=== PATIENT | male | born 1950 | race Hispanic/Latino ===

== ENCOUNTER 2020-03-25 12:23 | Emergency (ER) | payer OTHER ==
[2020-03-25] MEDS ORDERED: ACETAMINOPHEN 500 MG TAB ONE (13:53)
--- NOTE | 2020-03-25 14:17 | ER ---
Nurse's Notes [facility] Name: Mikie Hurst Age: 69 yrs Sex: Male : 1950 Arrival Date: 03/25/2020 Time: 12:25 Bed 26 Private MD: Diagnosis: Acute upper respiratory infection, unspecified Presentation: 03/25 12:45 Chief complaint: Patient states: Nasal congestion since 03/07. Started to have cough ll1 03/19. Family has similar symptoms. Coronavirus screen: Client denies travel out of the [place] in the last 14 days. congestion, cough unrelated to allergies, fatigue, Client presents with at least one sign or symptom that may indicate coronavirus-19. Standard/surgical mask placed on the client. Ebola Screen: Patient denies travel to an Ebola-affected area in the 21 days before illness onset. Initial Sepsis Screen: Does the patient meet any 2 criteria? HR > 90 bpm. No. Patient's initial sepsis screen is negative. Does the patient have a suspected source of infection? Yes: Productive cough/pneumonia. Risk Assessment: Do you want to hurt yourself or someone else? Patient reports no desire to harm self or others. Onset of symptoms was March 07, 2020. 12:45 Method Of Arrival: Ambulatory ll1 12:45 Acuity: SHAYAN 3 ll1 Historical: - Allergies: 12:45 No Known Allergies; ll1 - PMHx: 12:45 Hypertension; Diabetes - NIDDM; ll1 - PSHx: 12:45 L hand sx; Joint replacement; Appendectomy; ll1 - Immunization history:: Flu vaccine is up to date. - Social history:: Smoking status: Patient denies any tobacco usage or history of. Screenin:40 Abuse screen: Denies threats or abuse. Nutritional screening: No deficits noted. vg1 Tuberculosis screening: No symptoms or risk factors identified. Fall Risk None identified. Assessment: 13:38 General: Appears in no apparent distress. comfortable, Behavior is calm, cooperative. vg1 Pain: Denies pain. Neuro: Level of Consciousness is awake, alert, obeys commands, Oriented to person, place, time. Cardiovascular: Patient's skin is warm and dry. Respiratory: Airway is patent Respiratory effort is even, unlabored, Respiratory pattern is regular, symmetrical. Respiratory: Reports cough that is productive, Breath sounds are clear bilaterally. Denies shortness of breath. GI: Reports diarrhea. : No signs and/or symptoms were reported regarding the genitourinary system. EENT: No signs and/or symptoms were reported regarding the EENT system. Derm: Skin is pink, warm \T\ dry. Musculoskeletal: Range of motion: intact in all extremities. Vital Signs: 12:45 BP 137 / 93; Pulse 97; Resp 18; Temp 100.1; Pulse Ox 96% ; Weight 98.43 kg; Height 5 ll1 ft. 4 in. (162.56 cm); Pain 0/10; 13:25 BP 135 / 100 RA (auto/lg); Pulse 91; Pulse Ox 95% on R/A; jp3 14:00 BP 134 / 74; Pulse 85; Resp 16; Temp 98.6(O); Pulse Ox 97% on R/A; vg1 14:49 BP 136 / 81; Pulse 80; Resp 18; Pulse Ox 98% on R/A; vg1 12:45 Body Mass Index 37.25 (98.43 kg, 162.56 cm) ll1 ED Course: 12:25 Patient arrived in ED. rg4 12:44 Arm band placed on Patient placed in an exam room, on a stretcher. ll1 12:46 Irving Rivera NP is PHCP. pm1 12:46 Feroz Villagomez MD is Attending Physician. pm1 12:47 Triage completed. ll1 12:48 Chelsea Villa, RN is Primary Nurse. vg1 13:10 Bed in low position. Call light in reach. Side rails up X 1. Verbal reassurance given. jp3 Pulse ox on. NIBP on. 13:10 COVID swab sent to lab. Flu and/or RSV swab sent to lab. Strep swab sent to lab. jp3 13:10 Patient maintains SpO2 saturation greater than 95% on room air. jp3 14:33 No provider procedures requiring assistance completed. Patient did not have IV access vg1 during this emergency room visit. Administered Medications: 13:43 Drug: Tylenol 1000 mg Route: PO; vg1 14:15 Follow up: Response: Other vg1 Outcome: 14:17 Discharge ordered by . pm1 14:49 Discharged to home ambulatory. vg1 14:49 Condition: stable 14:49 Discharge instructions given to patient, Instructed on discharge instructions, follow up and referral plans. Demonstrated understanding of instructions, follow-up care. 14:50 Patient left the ED. vg1 Addendum: 03/27/2020 09:34 Addendum: COVID-19 Result: Positive result giiven to ED physician to notify pt. ajit m5 Physician: David Infante MD Physician attempted to contact pt. Physician left voice mail for pt to call the ED back. Signatures: Zahida Pichardo, RN RN dm5 Irving Rivera NP UPHOLSTERY INSTRUCTOR pm1 Lara Villa rg4 Mir High jp3 Chelsea Villa, RN RN vg1 Dinorah Kitchen, RN RN ll1 Corrections: (The following items were deleted from the chart) 03/25 14:15 14:00 BP 134 / 74; Pulse 85bpm; Resp 16bpm; Pulse Ox 97% RA; vg1 vg1 14:35 14:33 Discharged to home ambulatory, vg1 vg1 14:35 14:33 Condition: good vg1 vg1
--- NOTE | 2020-03-25 14:17 | EDPHYS ---
Physician Documentation [facility] Name: Mikie Hurst Age: 69 yrs Sex: Male : 1950 Arrival Date: 03/25/2020 Time: 12:25 Bed 26 Private MD: ED Physician Feroz Villagomez HPI: 03/25 12:58 This 69 yrs old Male presents to ER via Ambulatory with complaints of Cough, pm1 Drainage. 12:58 The patient or guardian reports cough, nasal congestion with post nasal drip. Onset: pm1 The symptoms/episode began/occurred 1 week(s) ago. Severity of symptoms: in the emergency department the symptoms have improved, nasal congestion, post nasal drainage and cough resolve with his antihistamines for allergies. Modifying factors: the symptoms are aggravated by nothing. Associated signs and symptoms: Pertinent negatives: chest pain, diarrhea, ear ache, fever, sore throat, vomiting, shortness of breath. The patient has not experienced similar symptoms in the past. The patient has not recently seen a physician. Patient is here with his and family who clinically have covid19 symptoms. Historical: - Allergies: 12:45 No Known Allergies; ll1 - PMHx: 12:45 Hypertension; Diabetes - NIDDM; ll1 - PSHx: 12:45 L hand sx; Joint replacement; Appendectomy; ll1 - Immunization history:: Flu vaccine is up to date. - Social history:: Smoking status: Patient denies any tobacco usage or history of. ROS: 12:58 Constitutional: Negative for fever, chills, and weight loss, Eyes: Negative for injury, pm1 pain, redness, and discharge. 12:58 Neck: Negative for injury, pain, and swelling, Cardiovascular: Negative for chest pain, palpitations, and edema. 12:58 Abdomen/GI: Negative for abdominal pain, nausea, vomiting, diarrhea, and constipation, Back: Negative for injury and pain, MS/Extremity: Negative for injury and deformity, Skin: Negative for injury, rash, and discoloration, Neuro: Negative for headache, weakness, numbness, tingling, and seizure. 12:58 ENT: Positive for nasal discharge, Negative for ear pain, sore throat. 12:58 Respiratory: Positive for cough, Negative for shortness of breath, sputum production, wheezing. Exam: 12:58 Constitutional: This is a well developed, well nourished patient who is awake, alert, pm1 and in no acute distress. Head/Face: Normocephalic, atraumatic. 12:58 Back: No spinal tenderness. No costovertebral tenderness. Full range of motion. Skin: Warm, dry with normal turgor. Normal color with no rashes, no lesions, and no evidence of cellulitis. MS/ Extremity: Pulses equal, no cyanosis. Neurovascular intact. Full, normal range of motion. 12:58 Cardiovascular: Exam negative for acute changes, Rate: normal, Rhythm: regular, Pulses: no pulse deficits are appreciated. 12:58 Respiratory: Exam negative for acute changes, respiratory distress, shortness of breath. 12:58 Abdomen/GI: Exam negative for acute changes, Inspection: abdomen appears normal, Palpation: abdomen is soft and non-tender, in all quadrants. Vital Signs: 12:45 BP 137 / 93; Pulse 97; Resp 18; Temp 100.1; Pulse Ox 96% ; Weight 98.43 kg; Height 5 ll1 ft. 4 in. (162.56 cm); Pain 0/10; 13:25 BP 135 / 100 RA (auto/lg); Pulse 91; Pulse Ox 95% on R/A; jp3 14:00 BP 134 / 74; Pulse 85; Resp 16; Temp 98.6(O); Pulse Ox 97% on R/A; vg1 14:49 BP 136 / 81; Pulse 80; Resp 18; Pulse Ox 98% on R/A; vg1 12:45 Body Mass Index 37.25 (98.43 kg, 162.56 cm) ll1 MDM: 12:52 Patient medically screened. pm1 14:16 Data reviewed: vital signs. Data interpreted: Pulse oximetry: on room air is 97 %. pm1 Interpretation: normal. Counseling: I had a detailed discussion with the patient and/or guardian regarding: the historical points, exam findings, and any diagnostic results supporting the discharge/admit diagnosis, lab results, the need for outpatient follow up, to return to the emergency department if symptoms worsen or persist or if there are any questions or concerns that arise at home. 03/25 12:57 Order name: COVID-19 pm1 03/25 12:57 Order name: Flu; Complete Time: 14:16 pm1 03/25 12:57 Order name: Strep; Complete Time: 14:12 pm1 03/25 12:57 Order name: Droplet/Contact Precautions; Complete Time: 13:02 pm1 03/25 14:12 Order name: Throat Culture [facility] 03/25 12:57 Order name: Labs collected and sent; Complete Time: 13:26 pm1 Administered Medications: 13:43 Drug: Tylenol 1000 mg Route: PO; vg1 14:15 Follow up: Response: Other vg1 Disposition: 15:02 Co-signature as Attending Physician, Feroz Villagomez MD. rn Disposition: 03/25/20 14:17 Discharged to Home. Impression: Acute upper respiratory infection, unspecified. - Condition is Stable. - Discharge Instructions: Upper Respiratory Infection, Adult, COVID-19. - Medication Reconciliation Form, Thank You Letter, Antibiotic Education, Prescription Opioid Use form. - Follow up: Emergency Department; When: As needed; Reason: Worsening of condition. Follow up: Private Physician; When: 2 - 3 days; Reason: Recheck today's complaints, Continuance of care, Re-evaluation by your physician. - Problem is new. - Symptoms have improved. Signatures: Dispatcher [employer] Feroz Villagomez MD MD rn Irving Rivera, MOTOR TESTER MOTOR TESTER pm1 Chelsea Villa RN RN vg1 Dinorah Kitchen RN RN ll1 Corrections: (The following items were deleted from the chart) 14:50 14:17 03/25/2020 14:17 Discharged to Home. Impression: Acute upper respiratory vg1 infection, unspecified. Condition is Stable. Forms are Medication Reconciliation Form, Thank You Letter, Antibiotic Education, Prescription Opioid Use. Follow up: Emergency Department; When: As needed; Reason: Worsening of condition. Follow up: Private Physician; When: 2 - 3 days; Reason: Recheck today's complaints, Continuance of care, Re-evaluation by your physician. Problem is new. Symptoms have improved. pm1
[2020-03-25 14:56] VITALS: TEMP 98.6
[2020-03-25 14:57] VITALS: BP 136/81; O2SAT 98
== END 2020-03-25 14:50 | disposition home or self-care (01) ==
LOC: ER 12:23
DX: U07.1 COVID-19 (principal); J06.9 Acute upper respiratory infection, unspecified; I10 Essential (primary) hypertension
CPT/HCPCS: 87070; 87081; 87804 ×2; 99284; U0002

== ENCOUNTER 2021-08-13 06:19 | Day surgery (SDC) | payer OTHER ==
--- NOTE | 2021-08-11 14:43 | RAD REPORT ---
EXAM DESCRIPTION: RAD - Chest Pa And Lat (2 Views) - 08/11/2021 2:37 pm CLINICAL HISTORY: Pre op pending hernia surgery Chest pain. COMPARISON: No comparisons FINDINGS: The lungs are clear. The heart is normal in size. No displaced fractures. IMPRESSION: No acute or concerning finding suspected.
[2021-08-11 14:59] LABS: Potassium 4.2 mmol/L (3.5-5.1)
[2021-08-11 15:59] LABS: Absolute Lymphocytes (CBC) 1.2 K/uL (0.7-4.9); Hematocrit 38.8 % (39.6-49.0); MPV 8.5 fL (7.6-11.3); RBC Red Blood Cell Count 4.03 M/uL (4.33-5.43)
--- NOTE | 2021-08-12 09:35 | EKG ---
Test Date: 2021-08-11 Test Time: 13:23:23 Marketing Account Manager: EMERALD MEASUREMENT RESULTS: Intervals: Rate: 90 VA: 154 QRSD: 182 QT: 424 QTc: 518 Rice: P: 38 VA: 154 QRS: -89 T: 32 INTERPRETIVE STATEMENTS: Normal sinus rhythm Left axis deviation Right bundle branch block Possible Lateral infarct, age undetermined Abnormal ECG Compared to ECG 10/19/2001 05:55:00 Left-axis deviation now present Right bundle-branch block now present Myocardial infarct finding now present Sinus tachycardia no longer present Left anterior fascicular block no longer present Electronically Signed On 08-12-21 09:32:28 CDT by Gunnar Sharp
[2021-08-13] MEDS ORDERED: NA CHLORIDE 0.9% 1,000 ML ONE (06:37)
[2021-08-13] MEDS ORDERED: FENTANYL CITR 100 MCG/2 ML ONE (07:05)
[2021-08-13] MEDS ORDERED: NA CHLORIDE 0.9% 0 ML ONE (07:05)
[2021-08-13] MEDS ORDERED: LIDOCAINE 2% MPF 5 ML VIAL ONE (07:06)
[2021-08-13] MEDS ORDERED: MIDAZOLAM HCL 2 MG/2 ML INJ ONE (07:06)
[2021-08-13] MEDS ORDERED: propofoL 200 MG/20 ML VIAL IV ONE (07:06)
[2021-08-13] MEDS ORDERED: ONDANSETRON 4 MG/2 ML VIAL ONE ×2 (07:07→09:16)
[2021-08-13] MEDS ORDERED: dexAMETHasone 10 MG/ML VIAL ONE (07:08)
[2021-08-13] MEDS ORDERED: ROCURONIUM 50 MG/5 ML VIAL IV ONE (07:08)
[2021-08-13] MEDS ORDERED: GLYCOPYRROLATE 0.2 MG/ML SYR ONE (07:08)
[2021-08-13] MEDS ORDERED: NEOSTIGMINE 1 MG/ML -10 ML VIAL ONE (07:09)
[2021-08-13] MEDS: CEFAZOLIN SODIUM 1 GM/VIAL ONE ×3 (07:09→07:40)
--- NOTE | 2021-08-13 08:32 | P.BOP ---
Preoperative diagnosis: incarcerated tender incisional ventral hernia Postoperative diagnosis: same plus intrabdominal adhesions Primary procedure: Laparoscopic Repair incarcer. tender incisional ventral hernias with mesh Station Installer: JOSELITO SCHWARZ (HAND RIVETER) Estimated blood loss: <20cc Specimen: sac Findings: multiple incisional hernias from previous incision, extensive adhesions Anesthesia: General Complications: None Drain(s): Other (large ventralex mesh) Transferred to: Recovery Room Condition: Good
[2021-08-13] MEDS: NA CHLORIDE 0.9% 1,000 ML ONE ×3 (08:34→08:45)
[2021-08-13] MEDS: HYDROMORPHONE HCL 1 MG/ML INJ ONE ×4 (09:12→09:42)
[2021-08-13] MEDS ORDERED: HYDROCODONE/APAP 5/325 MG TAB ONE (10:06)
[2021-08-13 10:11] VITALS: TEMP 97.4
[2021-08-13 10:47] VITALS: BP 116/58; O2SAT 96
--- NOTE | 2021-08-14 00:47 | OP ---
Date of Procedure: 08/13/2021 Surgeon: Mich Colon MD Jewelry Racker: Evelina Galarza. Preoperative Diagnosis: Incarcerated tender incisional ventral hernia. Postoperative Diagnoses: Incarcerated tender incisional ventral hernia and extensive intraabdominal adhesions. Procedure: Laparoscopic repair of incarcerated tender incisional ventral hernia with mesh. Estimated Blood Loss: Less than 20 cc. Specimen: Hernia sac. Findings: The patient has an incision in mid abdomen. There is a hernia coming from that area. Whe n we put the cameras inside, we noticed there was not only 1, there were about 4 them together. We w ill make this in 1 defect. We were able to cover that with the stitches and with the mesh all togeth er in 1 mesh. Complications: None. We have also extensive intraabdominal adhesions. The patient had surgical intervention. In the past in order for us to be able to do that, we had to mobilize the falciform ligament and also remove all the adhesions, took about half the time just doing this, with the help of LigaSure. History Of Present Illness: This is the case of a 71-year-old patient, who came to us with incisiona l pain, diagnosed with an incarcerated incisional ventral hernia. The benefits, alternatives, and ri sks of repair with mesh fully explained which include, but not limited to infection, bleeding, damage to adjacent structures, anesthesia complication, recurrence, chronic pain, chronic numbness, NM, and even . He also understands this may not relieve the symptoms. He might need more than one yaya gical intervention. He understood. We also explained that we might have to use mesh in that area. Pros and cons of mesh placement were discussed with the patient. After discussing the case and all t he questions answered to his satisfaction, he did consent and allow me to use mesh if needed. The chela celestin [facility] surgery [facility] of choice. Description Of Procedure: The patient was brought to the operating room, placed in supine position. Anesthesia was done without complication. Abdominal area was prepped and draped in usual sterile fa shion. Marcaine 0.5% was injected to the area to be incised. We went into the epigastric area first . We wanted to stay away from the mid abdomen since the patient has a large scar tissue in that kalyn on. We suspected maybe some adhesions underneath, maybe bowel, so the in epigastric area, we made an incision, opened the fascia under direct visualization, put Vicryl #1 inside of the fascia. Jesse trocar was carefully introduced. No bleeding was obtained. This allowed me to visualize the abdomen . Indeed, we have this sense of adhesions in the mid abdomen that will have to be mobilized in order for us to address this issue. We noticed that it could be just a more than 1 hernia, but we placed 5 mm trocars first in the right and left sides, and changing to a 5 mm camera, we were able to with t he help of LigaSure, remove all the adhesions from the been abdomen of concern. We did that in a slo w and meticulous fashion to make sure we have hemostasis and no enterotomies. We use LigaSure to hel p us. It took a significant amount of time, but it was necessary. We also had to mobilize the falci form ligament partially to be able to fix that in a secure fascia. We noticed the patient had about 4 hernias next to each other. We were able to make this into 1 defect. We made an incision in the p eriumbilical region and an approximated the fascia with #1 Prolene in a [id number] fashion. We approximated the defect individually. We were able to make this into 1 defect and into 1 surgery by be able to overlap the area about 3-5 cm with the mesh. We dropped the mesh Ventralex through the 1 of these hernias and pulled the straps and the mesh went against the abdominal wall without any probl em. Under direct visualization with the SorbaFix, we proceeded to fixate this mesh in place. The st raps were removed and we further secured the mesh in place with SorbaFix fixation device. The mesh l ooked nice and flat against the peritoneum. We inspected the area of the lysis of adhesions, looked intact. We sewed the area of the fascia, looked airproof. At that moment, I proceeded to remove the trocars under direct vision. Deflated pneumoperitoneum, closed the fascia in the epigastric area al so with #1 Vicryl. Irrigated subcutaneous tissue. Closed the subcu tissue with 3-0 chromic and skin with cira. Sponge count and instrument counts correct. The patient tolerated the procedure well . The patient sent to recovery in stable condition. Disposition: Home. Activity: As tolerated, no heavy lifting. Follow up in my office in 1 week. Call for appointment at [phone]. Keep area dry for 48 hours, the n may shower. Keep Steri-Strip intact. The patient advised about the abdominal binder. WENDI/HALEY Voice ID: [id number] Report ID: [id number]
== END 2021-08-13 10:50 | disposition home or self-care (01) ==
LOC: OR 06:19
PROVIDERS: ATTEND Surgery
PROC: 0WUF4JZ Supplement Abdominal Wall with Synthetic Substitute, Percutaneous Endoscopic Approach (ICD-10-PCS; principal; 2021-08-13 07:30)
DX: K43.0 Incisional hernia with obstruction, without gangrene (principal); E78.00 Pure hypercholesterolemia, unspecified; I51.9 Heart disease, unspecified; Z20.822 Contact with and (suspected) exposure to COVID-19
CPT/HCPCS: 93005; 85025; 80048; 36415; 82947 ×2; 88302; 71046; 49655; U0003; J2704; J2710; J2250; J3010; J1170 ×2; J7030 ×2; J2405 ×2; J0690; J1100

== ENCOUNTER 2022-09-07 16:14 | Emergency (ER) | payer OTHER ==
--- OUTSIDE RECORDS SUMMARY | 2022-09-07 16:18 | XMS REPORT | Continuity of Care Document ---
:1950 Author Organization [facility] t Address [address] [place] [address] [address] [place] [address] Care Team Providers Name Role Phone Ministerio ELISSAHenok Primary Care Physician Sarah Diane MD Attending Clinician SARAH DIANE Attending Clinician Unavailable LISANDRO BELL Attending Clinician Unavailable Lab, Ang - Db Attending Clinician Unavailable Tal Corcoran Attending Clinician Payers Payer Name Policy Type Policy Number Effective Date Expiration Date S ource Problems Condition Condition Condition Status Onset Resolution Last Treating Co mments Source Name Details Category Date Date Treatment Clinician Date Essential Essential Problem Active 2021-11-08 Memoria tremor tremor 04-23 04:06:15 l (disorder) (disorder) 00:00: He rmann Active 00 04/23/2015 Problem 11/08/2021 [facility] Meralgia Meralgia Problem Active 2021-11-08 Memoria parestheti parestheti 04-23 04:06:15 l ca ca 00:00: Jcarlos (disorder) (disorder) 00 Active 04/23/2015 Problem 11/08/2021 [facility] Diabetes Diabetes Problem Active 2021-11-08 Memoria mellitus mellitus 09-25 04:06:15 l (disorder) (disorder) 00:00: He rmann Active 00 09/25/2014 Problem 11/08/2021 [facility] Essential Essential Problem Active 2021-11-08 Memoria hypertensi hypertensi 09-25 04:06:15 l on on 00:00: [place] (disorder) (disorder) 00 Active 09/25/2014 Problem 11/08/2021 [facility] Hyperlipid Problem Active 2021-11-08 M renetta emia Hyperlipid 09-25 04:06:15 l (disorder) emia 00:00: Benny n (disorder) 00 Active 09/25/2014 Problem 11/08/2021 [facility] Hypertensi Problem Active 2021-11-08 M renetta ve Hypertensi 04:06:15 l disorder, ve [place] systemic disorder, arterial systemic (disorder) arterial (disorder) Active Problem 11/08/2021 [facility] No known No known Disease Unive rs active active ity of problems problems [facility] Allergies, Adverse Reactions, Alerts Allergy Allergy Status Severity Reaction(s) Onset Inactive Treating Comm ents Source Name Type Date Date Clinician NO KNOWN Drug Active Univers ALLERGIE Class ity of S [facility] No Known No Known Active Memori a Medicati Medicati l on on Jcarlos Allergjorje Allergjorje s s Social History Social Habit Start Date Stop Date Quantity Comments Source Exposure to 2021-11-24 2021-12-04 Not sure University SARS-CoV-2 00:00:00 10:27:00 [facility] (event) [place] Tobacco use and 2021-11-13 2021-11-13 Smokeless tobacco Un iversity of exposure 00:00:00 00:00:00 non-user [facility] Sex Ass[birth year] At [birth year] Universit y of 00:00:00 00:00:00 [facility] Smoking Status Start Date Stop Date Source Social History [facility] Medications Ordered Filled Start Stop Current Ordering Indication Dosage Frequency Signature Comments Components Source Medication Medication Date Date Medication? Clinician (SIG) Name Name diclofenac Yes [id number] 75mg Take 1 Univers 75 mg EC 9 9100 tablet by ity of tablet 00:00: mouth in [place] [address] the Medical morning Branch and 1 tablet in the evening. Take with meals. diclofenac Yes [id number] 75mg Take 1 Univers 75 mg EC 9 9100 tablet by ity of tablet 00:00: mouth in [place] [address] the Medical morning Branch and 1 tablet in the evening. Take with meals. atorvastati 2021-1 Yes 20mg Take 20 mg Univers n 20 mg 1-24 by mouth ity of tablet 09:15: at [place] [address] bedtime. Medical Branch PRIMIDONE 2020-03 Yes 50mg Take 50 mg Un colin ORAL 1-24 by mouth ity of 09:15: daily. [place] [address] Medical Branch LOSARTAN-HY 2020-03 Yes 100mg Take 100 U nivers DROCHLOROTH 1-24 mg by ity of IAZIDE ORAL 09:15: mouth [place] 54 daily. Medical Branch metFORMIN 2020-03 Yes 500mg Take 500 Uni vers 500 mg 1-24 mg by ity of tablet 09:15: mouth 2 [place] 54 (two) Medical times Branch daily with meals. SITagliptin 2020-03 Yes 100mg Take 100 U nivers (JANUVIA) 1-24 mg by ity of 100 mg 09:15: mouth [place] tablet 54 daily. Medical Branch tamsulosin 2020-03 Yes .4mg Take 0.4 Uni vers 0.4 mg 24 1-24 mg by ity of hr capsule 09:15: mouth [place] 54 daily. Medical Branch metoprolol 2020-03 Yes 100mg Take 100 Un colin succinate 1-24 mg by ity of XL 100 mg 09:15: mouth [place] 24 hr 54 daily. Medical tablet Branch Goff-3-DHA 2020-03 Yes Take by Uni vers -EPA-Fish 1-24 mouth. ity of Oil (FISH 09:15: [place] OIL) 1,000 54 Medical mg (120 Branch mg-180 mg) Cap zinc 2020-03 Yes Take by Univers sulfate 1-24 mouth. ity of (ZINC-15 09:15: [place] ORAL) 54 Medical Branch multivit-mi 2020-03 Yes Take by Uni vers n-FA-lycope 1-24 mouth. ity of n-lutein 09:15: [place] (CENTRUM 54 Medical SILVER MEN) Branch 300-600-300 mcg Tab atorvastati 2020-03 Yes 20mg Take 20 mg Univers n 20 mg 1-24 by mouth ity of tablet 09:15: at [place] [address] bedtime. Medical Branch PRIMIDONE 2020-03 Yes 50mg Take 50 mg Un colin ORAL 1-24 by mouth ity of 09:15: daily. [place] [address] Medical Branch LOSARTAN-HY 2020-03 Yes 100mg Take 100 U nivers DROCHLOROTH 1-24 mg by ity of IAZIDE ORAL 09:15: mouth [place] 54 daily. Medical Branch metFORMIN 2020-03 Yes 500mg Take 500 Uni vers 500 mg 1-24 mg by ity of tablet 09:15: mouth 2 [place] [address] (two) Medical times Branch daily with meals. SITagliptin 2020-03 Yes 100mg Take 100 U nivers (JANUVIA) 1-24 mg by ity of 100 mg 09:15: mouth [place] tablet 54 daily. Medical Branch tamsulosin 2020-03 Yes .4mg Take 0.4 Uni vers 0.4 mg 24 1-24 mg by ity of hr capsule 09:15: mouth [place] 54 daily. Medical Branch metoprolol 2020-03 Yes 100mg Take 100 Un colin succinate 1-24 mg by ity of XL 100 mg 09:15: mouth [place] 24 hr 54 daily. Medical tablet Branch Goff-3-DHA 2020-03 Yes Take by Uni vers -EPA-Fish 1-24 mouth. ity of Oil (FISH 09:15: [place] OIL) 1,000 54 Medical mg (120 Branch mg-180 mg) Cap zinc 2020-03 Yes Take by Univers sulfate 1-24 mouth. ity of (ZINC-15 09:15: [place] ORAL) 54 Medical Branch multivit-mi 2020-03 Yes Take by Uni vers n-FA-lycope 1-24 mouth. ity of n-lutein 09:15: [place] (CENTRUM 54 Medical SILVER MEN) Branch 300-600-300 mcg Tab atorvastati 2020-03 Yes 20mg Take 20 mg Univers n 20 mg 1-24 by mouth ity of tablet 09:15: at [place] [address] bedtime. Medical Branch PRIMIDONE 2020-03 Yes 50mg Take 50 mg Un colin ORAL 1-24 by mouth ity of 09:15: daily. [place] [address] Medical Branch LOSARTAN-HY 2020-03 Yes 100mg Take 100 U nivers DROCHLOROTH 1-24 mg by ity of IAZIDE ORAL 09:15: mouth [place] 54 daily. Medical Branch metFORMIN 2020-03 Yes 500mg Take 500 Uni vers 500 mg 1-24 mg by ity of tablet 09:15: mouth 2 [place] [address] (two) Medical times Branch daily with meals. SITagliptin 2020-03 Yes 100mg Take 100 U nivers (JANUVIA) 1-24 mg by ity of 100 mg 09:15: mouth [place] tablet 54 daily. Medical Branch tamsulosin 2020-03 Yes .4mg Take 0.4 Uni vers 0.4 mg 24 1-24 mg by ity of hr capsule 09:15: mouth [place] 54 daily. Medical Branch metoprolol 2020-03 Yes 100mg Take 100 Un colin succinate 1-24 mg by ity of XL 100 mg 09:15: mouth [place] 24 hr 54 daily. Medical tablet Branch Goff-3-DHA 2020-03 Yes Take by Uni vers -EPA-Fish 1-24 mouth. ity of Oil (FISH 09:15: [place] OIL) 1,000 54 Medical mg (120 Branch mg-180 mg) Cap zinc 2020-03 Yes Take by Univers sulfate 1-24 mouth. ity of (ZINC-15 09:15: [place] ORAL) 54 Medical Branch multivit-mi 2020-03 Yes Take by Uni vers n-FA-lycope 1-24 mouth. ity of n-lutein 09:15: [place] (CENTRUM 54 Medical SILVER MEN) Branch 300-600-300 mcg Tab atorvastati 2020-03 Yes 20mg Take 20 mg Univers n 20 mg 1-24 by mouth ity of tablet 09:15: at [place] 54 bedtime. Medical Branch PRIMIDONE 2020-03 Yes 50mg Take 50 mg Un colin ORAL 1-24 by mouth ity of 09:15: daily. [place] 54 Medical Branch LOSARTAN-HY 2020-03 Yes 100mg Take 100 U nivers DROCHLOROTH 1-24 mg by ity of IAZIDE ORAL 09:15: mouth [place] 54 daily. Medical Branch metFORMIN 2020-03 Yes 500mg Take 500 Uni vers 500 mg 1-24 mg by ity of tablet 09:15: mouth 2 [place] 54 (two) Medical times Branch daily with meals. SITagliptin 2020-03 Yes 100mg Take 100 U nivers (JANUVIA) 1-24 mg by ity of 100 mg 09:15: mouth [place] tablet 54 daily. Medical Branch tamsulosin 2020-03 Yes .4mg Take 0.4 Uni vers 0.4 mg 24 1-24 mg by ity of hr capsule 09:15: mouth [place] 54 daily. Medical Branch metoprolol 2020-03 Yes 100mg Take 100 Un colin succinate 1-24 mg by ity of XL 100 mg 09:15: mouth [place] 24 hr 54 daily. Medical tablet Branch Goff-3-DHA 2020-03 Yes Take by Uni vers -EPA-Fish -24 mouth. ity of Oil (FISH 09:15: [place] OIL) 1,000 54 Medical mg (120 Branch mg-180 mg) Cap zinc 2020-03 Yes Take by Univers sulfate 24 mouth. ity of (ZINC-15 09:15: [place] ORAL) 54 Medical Branch multivit-mi 2020-03 Yes Take by Uni vers n-FA-lycope -24 mouth. ity of n-lutein 09:15: [place] (CENTRUM 54 Medical SILVER MEN) Branch 300-600-300 mcg Tab primidone Yes 50 mg = 1 Mem oria 50 mg oral 1-27 tab, PO, l tablet 18:06: Bedtime, # Shanelle nn 00 90 tab, 1 Refill(s), Pharmacy: [place] [id number] [facility], 162.56, cm, 04/24/20 11:50:00 [employer], Height, 50.994, kg, 04/24/20 11:50:00 [employer], Weight primidone Yes See Memoria 50 mg oral 4-28 Instructio l tablet 16:52: ns, # 90 Jcarlos 09 tab, Refill(s) 1, TAKE 1 TABLET AT BEDTIME, Pharmacy: [facility] nortriptyli Yes 20 mg = 2 M emoria ne 10 mg 6-07 cap, PO, l oral 13:59: Bedtime, # [place] capsule 53 180 cap, 2 Refill(s), Pharmacy: [facility] primidone Yes 50 mg = 1 Mem oria 50 mg oral 6-07 tab, PO, l tablet 13:59: Bedtime, # Shanelle nn 44 90 tab, 2 Refill(s), Pharmacy: [facility] primidone No 50 mg = 1 Mem oria 50 mg oral 5-31 tab, PO, l tablet 22:01: Bedtime, X Shanelle nn 15 90 day, # 90 tab, 2 Refill(s), Pharmacy: [facility] [facility] #[id number] nortriptyli No 20 mg = 2 M emoria ne 10 mg 5-30 cap, PO, l oral 21:35: Bedtime, # Jcarlos capsule 03 180 cap, 3 Refill(s), Pharmacy: [facility] #[id number] primidone 2018- No 50 mg = 1 Mem oria 50 mg oral 1-20 tab, PO, l tablet 23:58: Bedtime, X Shanelle nn 00 90 day, # 90 tab, 2 Refill(s), Pharmacy: [facility] #[id number] nortriptyli 2018- Yes 20 mg = 2 M emoria ne 10 mg 0-24 cap, PO, l oral 22:08: Bedtime, # [place] capsule 00 180 cap, 3 Refill(s), Pharmacy: [facility] #[id number] Immunizations Ordered Filled Immunization Date Status Comments [facility] e Immunization Name Name SARS-COV-2 COVID-19 2020-06-01 Completed Unive rsity of MODERNA 12+ YRS 00:00:00 [facility] VACCINE Branch SARS-COV-2 COVID-19 2020-06-01 Completed Unive rsity of MODERNA 12+ YRS 00:00:00 [facility] Branch SARS-COV-2 COVID-19 2020-06-01 Completed Unive rsity of MODERNA VACCINE 00:00:00 [facility] SARS-COV-2 COVID-19 2020-06-01 Completed Unive rsity of MODERNA VACCINE 00:00:00 [facility] SARS-COV-2 COVID-19 2020-05-04 Completed Unive rsity of MODERNA 12+ YRS 00:00:00 [facility] VACCINE Branch SARS-COV-2 COVID-19 2020-05-04 Completed Unive rsity of MODERNA VACCINE 00:00:00 [facility] SARS-COV-2 COVID-19 2020-05-04 Completed Unive rsity of MODERNA VACCINE 00:00:00 [facility] SARS-COV-2 COVID-19 2020-05-04 Completed Unive rsity of MODERNA 12+ YRS 00:00:00 [facility] Vital Signs Vital Name Observation Time Observation Value Comments Source Body height 2021-12-04 15:32:[address] [facility] Body weight 2021-12-04 15:32:[address] [facility] BMI 2021-12-04 15:32:00 35.22 kg/m2 [facility] Systolic blood 2021-11-13 14:20:00 124 mm[facility]Hg[facility] pressure [facility] Branch Diastolic blood 2021-11-13 14:20:00 78 mm[Hg] [facility] pressure [facility] Branch Heart rate 2021-11-13 14:20:00 64 /min [facility] Body height 2021-11-13 14:20:[address] [facility] Body weight 2021-11-13 14:20:[address] [facility] BMI 2021-11-13 14:20:00 35.22 kg/m2 [facility] Oxygen saturation 2021-11-13 14:20:00 97 /min [facility] in Arterial blood Medical Br anch by Pulse oximetry Systolic (mm Hg) 2021-11-05 14:44:00 Gerardo rial [place] Diastolic (mm Hg) 2021-11-05 14:44:00 Mem orial Jcarlos Heart Rate 2021-11-05 14:44:00 [facility] [place] Respitory Rate 2021-11-05 14:44:00 Memori al Jcarlos Height 2021-11-05 14:44:00 160.02 cm [facility] Jcarlos Weight 2021-11-05 14:44:00 [facility] [place] BMI Calculated 2021-11-05 14:44:00 Memori al Jcarlos Systolic (mm Hg) 2021-01-22 16:28:00 Egrardo rial Jcarlos Diastolic (mm Hg) 2021-01-22 16:28:00 Mem orial Jcarlos Heart Rate 2021-01-22 16:28:00 Memorial Jcarlos Respitory Rate 2021-01-22 16:28:00 Memori al Jcarlos Height 2021-01-22 16:28:00 162.56 cm [facility] [place] Weight 2021-01-22 16:28:00 [facility] Jcarlos BMI Calculated 2021-01-22 16:28:00 Memori al Jcarlos Systolic (mm Hg) 2020-04-24 17:50:00 Gerardo rial [place] Diastolic (mm Hg) 2020-04-24 17:50:00 Mem orial Jcarlos Heart Rate 2020-04-24 17:50:00 Memorial Jcarlos Respitory Rate 2020-04-24 17:50:00 Memori al [place] Height 2020-04-24 17:50:00 162.56 cm [facility] Jcarlos Weight 2020-04-24 17:50:00 [facility] Jcarlos BMI Calculated 2020-04-24 17:50:00 Memori al Jcarlos Height 2019-08-04 19:26:00 162.56 cm [facility] Jcarlos Weight 2019-08-04 19:26:00 [facility] [place] BMI Calculated 2019-08-04 19:26:00 Memori al [place] Systolic (mm Hg) 2019-08-04 19:26:00 Gerardo rial Jcarlos Diastolic (mm Hg) 2019-08-04 19:26:00 Mem orial Jcarlos Heart Rate 2019-08-04 19:26:00 [facility] [place] Respitory Rate 2019-08-04 19:26:00 Memori al [place] Systolic (mm Hg) 2018-11-17 20:32:00 Gerardo rial [place] Diastolic (mm Hg) 2018-11-17 20:32:00 Mem orial [place] Heart Rate 2018-11-17 20:32:00 [facility] Jcarlos Respitory Rate 2018-11-17 20:32:00 Memori al Jcarlos Height 2018-11-17 20:32:00 162.56 cm [facility] [place] Weight 2018-11-17 20:32:00 [facility] [place] BMI Calculated 2018-11-17 20:32:00 Memori al [place] Weight 2018-04-14 15:59:00 [facility] [place] Height 2018-04-14 15:59:00 162.56 cm [facility] Jcarlos BMI Calculated 2018-04-14 15:59:00 Memori al [place] Heart Rate 2018-04-14 15:59:00 [facility] [place] Respitory Rate 2018-04-14 15:59:00 Memori al Jcarlos Systolic (mm Hg) 2018-04-14 15:59:00 Gerardo rial Jcarlos Diastolic (mm Hg) 2018-04-14 15:59:00 Mem orial [place] Procedures Procedure Date / Time Performed Performing Clinician Sour e CBC WITH DIFF 2021-11-13 15:09:00 Sarah Diane [facility] Encounters Start End Encounter Admission Attending Care Care Encounter Source Date/Time Date/Time Type Type Clinicians Facility Department ID 2022-11-05 2022-11-05 Outpatient JOSUÉ MOSES [id number] Memoria 09:45:00 09:45:00 12 daria Garber 2021-12-04 2021-12-04 [facility] [id number] Univers 11:15:00 11:15:00 Visit Sarah Garcia [facility] [id number] it y of [place] [id number] Juan as [place] [id number] Ga rylie [facility] 198 [facility] OFFICE BUILDING 2021-12-04 2021-12-04 Outpatient R DOUGUC [facility] [id number] Univers 11:15:00 10:48:37 [facility] 2021-11-19 2021-11-19 Outpatient [facility] [id number] Univers 08:45:00 08:45:00 [facility]O [facility] 2021-11-13 2021-11-13 Outpatient R DIANEUC [facility] [id number] Univers 09:30:00 23:59:00 [facility] 2021-11-13 2021-11-13 Print Line Inspector Lab, Ang - [facility] [id number] Univers 10:00:00 10:15:00 Visit Sarah Diane [facility] [id number] ity of [place] [id number] Juan as [place] [id number] Ga rylie [address] OFFICE [facility] 2021-11-13 2021-11-13 Outpatient R DOUGUC [facility] [id number] Univers 09:15:00 09:56:54 [facility] 2021-11-13 2021-11-13 [facility] [id number] Univers 09:15:00 09:56:54 Visit Sarah Garcia [facility] [id number] it y of [place] [id number] Juan as [place] [id number] Me dical KNEY [address] [facility] 2021-11-13 2021-11-13 Telephone SUREKHA Diane [id number] [facility] 00:00:00 00:00:00 Sarah ESTEVEZ [id number] it y [facility] [id number] Juan as [place] [id number] Me dical KNEY [address] [facility] 2021-11-05 2021-11-06 Outpatient nullFlavo MNA [id number] Memoria 14:45:00 04:59:59 r Neurology 11 l [place] Baezann 2021-11-05 2021-11-05 Outpatient Nilo MHMISCHER MHMISCHER [id number] 09:45:00 23:59:59 Tal 11 Meng 2021-11-05 2021-11-05 Outpatient MHIE MHIE [id number] Memoria 09:45:00 09:45:00 11 daria Jcarlos 2021-01-22 2021-01-23 Outpatient nullFlavo MNA [id number] Memoria 16:30:00 04:59:59 r Neurology 10 daria [place] Jcarlos 2021-01-22 2021-01-22 Outpatient MONA CorcoranMISCHER MHMISCHER [id number] 11:30:00 23:59:59 Tal 10 Meng 2021-01-22 2021-01-22 Outpatient MHIE MHIE [id number] Memoria 11:30:00 11:30:00 10 daria Jcarlos 2020-04-24 2020-04-25 Outpatient nullFlavo MNA [id number] Memoria 17:45:00 05:59:59 r Neurology 09 daria [place] Jcarlos 2020-04-24 2020-04-24 Outpatient MONA CorcoranMISCHER MHMISCHER [id number] 11:45:00 23:59:59 Tal 09 Meng 2020-04-24 2020-04-24 Outpatient MHIE MHIE [id number] Memoria 11:45:00 11:45:00 09 daria Jcarlos 2019-12-01 2019-12-01 Ambulatory nullFlavo MNA [id number] Memoria 19:30:00 19:30:00 Pre-Reg r Neurology 08 l [place] 2019-12-01 2019-12-01 Ambulatory nullFlavo MNA [id number] Memoria 19:30:00 19:30:00 Pre-Reg r Neurology 07 l Nazanin Garber 2019-12-01 2019-12-01 Outpatient MHIE MHIE [id number] Memoria 14:30:00 14:30:00 07 daria Garber 2019-12-01 2019-12-01 Outpatient MHIE MHIE [id number] Memoria 14:30:00 14:30:00 08 daria Garber 2019-12-01 2019-12-01 Outpatient Nilo, MHMISCHER MHMISCHER [id number] 14:30:00 14:30:00 Tal 08 Meng 2019-12-01 2019-12-01 Outpatient Nilo, MHMISCHER MHMISCHER [id number] 14:30:00 14:30:00 Tal Briseyda Fan 2019-08-04 2019-08-05 Outpatient nullFlavo MNA [id number] Memoria 19:00:00 04:59:59 r Neurology 06 daria Garber 2019-08-04 2019-08-04 Outpatient Nilo, MHMISCHER MHMISCHER [id number] 14:00:00 23:59:59 Tal Lisandro Fan 2019-08-04 2019-08-04 Outpatient MHIE MHIE [id number] Memoria 14:00:00 14:00:00 06 daria Garber 2018-11-17 2018-11-18 Outpatient nullFlavo MNA [id number] Memoria 20:45:00 04:59:59 r Neurology 05 daria [place] Jcarlos 2018-11-17 2018-11-17 Outpatient Nilo, MHMISCHER MHMISCHER [id number] 15:45:00 23:59:59 Tal Jeny Fan 2018-11-17 2018-11-17 Outpatient MHIE MHIE [id number] Memoria 15:45:00 15:45:00 05 daria [place] 2018-10-13 2018-10-13 Ambulatory nullFlavo MNA [id number] Memoria 14:15:00 14:15:00 Pre-Reg r Neurology 04 l Nazanin Jcarlos 2018-10-13 2018-10-13 Outpatient MHIE MHIE [id number] Memoria 09:15:00 09:15:00 04 daria Garber 2018-10-13 2018-10-13 Outpatient Nilo, MHMISCHER MHMISCHER [id number] 09:15:00 09:15:00 Tal 04 Meng 2018-04-14 2018-04-15 Outpatient nullFlavo MNA [id number] Memoria 16:00:00 05:59:59 r Neurology 03 daria Garber 2018-04-14 2018-04-14 Outpatient Nilo, MHMISCHER MHMISCHER [id number] 10:00:00 23:59:59 Tal 03 Meng 2018-04-14 2018-04-14 Outpatient MHIE MHIE [id number] Memoria 10:00:00 10:00:00 03 daria Garber 2018-03-10 2018-03-10 Ambulatory nullFlavo MNA [id number] Memoria 15:30:00 15:30:00 Pre-Reg r Neurology 02 daria Garber 2018-03-10 2018-03-10 Outpatient MHIE MHIE [id number] Memoria 09:30:00 09:30:00 02 daria Garber 2018-03-10 2018-03-10 Outpatient Nilo, MHMISCHER MHMISCHER [id number] 09:30:00 09:30:00 Tal 02 Meng 2018-02-15 2018-02-17 Phone nullFlavo MNA [id number] Memoria 22:24:00 05:59:59 Message r Neurology 04 daria Garber 2018-02-15 2018-02-17 Phone nullFlavo MNA [id number] Memoria 21:51:00 05:59:59 Message r Neurology 03 daria Garber 2018-02-15 2018-02-16 Outpatient MHMISCHER MHMISCHER [id number] 16:24:00 23:59:59 04 2018-02-15 2018-02-16 Outpatient MHMISCHER MHMISCHER [id number] 15:51:00 23:59:59 03 2018-01-19 2018-01-21 Phone nullFlavo MNA [id number] Memoria 20:07:00 04:59:59 Message r Neurology 02 daria Baezann 2018-01-19 2018-01-20 Outpatient MHMISCHER MHMISCHER [id number] 15:07:00 23:59:59 02 2017-10-14 2017-10-14 Outpatient [facility] [id number] Memoria 10:30:00 10:30:00 01 daria Jcarlos 2017-06-17 2017-06-17 Outpatient JORJE JORJE [id number] Memoria 09:45:00 09:45:00 00 daria Garber Results Test Description Test Time Test Comments Results Result Comments Source CHEM PANEL 2018-11-17 21:41:00 Test Item Value Reference Range Interpretation Comme nts BUN (test code = BUN) 22 10-20 [facility]2019-08-22 21:41:00 Test Item Value Reference Range Interpretation Comments Creatinine Lvl (test code = Creatinine 1.35 0.70-1.25 Lvl) [id number] 21:41:00 Test Item Value Reference Range Interpretation Comments eGFR NON-AFR. CAMEROONIAN (test code = 54 eGFR NON-AFR. CAMEROONIAN) [facility] HospitalAnonym[facility] [id number] 21:41:00 Test Item Value Reference Range Interpretation Comments eGFR (test code = eGFR 63 ) [facility] HospitalFST21[facility] [id number] 21:41:00 Test Item Value Reference Range Interpretation Comments B/C Ratio (test code = B/C Ratio) 16 09-[address] [facility] [id number] 21:41:00 Test Item Value Reference Range Interpretation Comments ASPARTATE TRANSAMINASE (test code = 41 10-35 ASPARTATE TRANSAMINASE) [facility] HospitalFST21[facility] [id number] 21:41:00 Test Item Value Reference Range Interpretation Comments ALANINE AMINOTRANSFERASE (test code = 45 9-46 ALANINE AMINOTRANSFERASE) [facility] [id number] 16:34:00 Test Item Value Reference Range Interpretation Comments ASPARTATE TRANSAMINASE (test code = 46 10-35 ASPARTATE TRANSAMINASE) [facility] [id number] 16:34:00 Test Item Value Reference Range Interpretation Comments ALANINE AMINOTRANSFERASE (test code = 56 9-46 ALANINE AMINOTRANSFERASE) [facility] [id number] 16:34:00 Test Item Value Reference Range Interpretation Comments RDW (test code = RDW) 11.8 11.0-15.0 [facility] [id number] 16:34:00 Test Item Value Reference Range Interpretation Comments MCHC (test code = MCHC) 35.2 32.0-36.0 [facility] [id number] 16:34:00 Test Item Value Reference Range Interpretation Comments MPV (test code = MPV) 11.2 7.5-12.5 [facility] [id number] 16:34:00 Test Item Value Reference Range Interpretation Comments Platelet (test code = Platelet) 214 140-400 [facility] [id number] 16:34:00 Test Item Value Reference Range Interpretation Comments Eosinophils (test code = Eosinophils) 14.1 [facility] [id number] 16:34:00 Test Item Value Reference Range Interpretation Comments Basophils (test code = Basophils) 0.6 [facility] [id number] 16:34:00 Test Item Value Reference Range Interpretation Comments Monocytes # (test code = Monocytes #) 616 200-950 [facility] H[id number] 16:34:00 Test Item Value Reference Range Interpretation Comments Neutrophils # (test code = Neutrophils 4415 5618-2645 #) [facility] H[id number] 16:34:00 Test Item Value Reference Range Interpretation Comments Lymphocytes # (test code = Lymphocytes 7930 034-7565 #) [facility] H[id number] 16:34:00 Test Item Value Reference Range Interpretation Comments Eosinophils # (test code = Eosinophils 1100 15-500 #) [facility] H[id number] 16:34:00 Test Item Value Reference Range Interpretation Comments MCH (test code = MCH) 33.5 pg 27.0-33.0 [facility] H[id number] 16:34:00 Test Item Value Reference Range Interpretation Comments Lymphocytes (test code = Lymphocytes) 20.8 [facility] H[id number] 16:34:00 Test Item Value Reference Range Interpretation Comments Monocytes (test code = Monocytes) 7.9 [facility] H[id number] 16:34:00 Test Item Value Reference Range Interpretation Comments Segs (test code = Segs) 56.6 [facility] H[id number] 16:34:00 Test Item Value Reference Range Interpretation Comments Basophils # (test code 47 See_Comment [Aut omated message] The = Basophils #) system which generated this result tra nsmitted reference range : <=200. The reference r deonte was not used to int erpret this result as normal/abnormal . [facility] H[id number] 16:34:00 Test Item Value Reference Range Interpretation Comments MCV (test code = MCV) 95.3 80.0-100.0 [facility] H[id number] 16:34:00 Test Item Value Reference Range Interpretation Comments WBC X 10x3 (test code = WBC X 10x3) 7.8 3.8-10.8 [facility] H[id number] 16:34:00 Test Item Value Reference Range Interpretation Comments RBC X 10x6 (test code = RBC X 10x6) 4.86 4.20-5.80 [facility] Hospit[id number] 16:34:00 Test Item Value Reference Range Interpretation Comments Hct (test code = Hct) 46.3 38.5-50.0 [facility] H[id number] 16:34:00 Test Item Value Reference Range Interpretation Comments Hgb (test code = Hgb) 16.3 13.2-17.1 [id number] 16:34:00 Test Item Value Reference Range Interpretation Comments Phenobarb Lvl (test code = Phenobarb no gt 15.0-40.0 Lvl) [id number] 16:34:00 Test Item Value Reference Range Interpretation Comments Primidone Lvl (test code = Primidone no gt 5.0-12.0 Lvl) [facility]
[2022-09-07 16:52] LABS: Absolute Lymphocytes (CBC) 1.5 K/uL (0.7-4.9); Hematocrit 40.4 % (39.6-49.0); Lymphocytes % 17.6 % (15.3-44.8); MCV 97.1 fL (80-100); MPV 8.8 fL (7.6-11.3); RBC Red Blood Cell Count 4.16 M/uL (4.33-5.43)
[2022-09-07] MEDS ORDERED: ASPIRIN 81 MG CHEWABLE TABLET ONE (16:59)
[2022-09-07 17:19] LABS: Magnesium 1.6 mg/dL (1.6-2.4); Potassium 4.1 mEq/L (3.5-5.1); Troponin High Sensitivity 6.2 pg/mL (<58.9)
--- NOTE | 2022-09-07 17:59 | RAD REPORT ---
EXAM DESCRIPTION: Olivier Single View09/07/2022 5:50 pm CLINICAL HISTORY: Chest pain COMPARISON: 2021 FINDINGS: The lungs appear clear of acute infiltrate. The heart is probably upper limits normal siz e IMPRESSION: No acute abnormalities displayed
--- NOTE | 2022-09-07 20:21 | EDPHYS ---
Physician Documentation [facility] Name: Mikie Hurst Age: 72 yrs Sex: Male : 1950 Arrival Date: 09/07/2022 Time: 16:14 Bed 13 Private MD: ED Physician David Infante HPI: 09/07 16:34 This 72 yrs old Male presents to ER via Ambulatory with complaints of Chest ms3 Pain. 16:34 72-year-old male with past medical history of diabetes, hypertension presents for chest ms3 pain. Patient states he had performed yard work and was sitting while planting plants and developed sharp substernal chest pain that he rates 3/10. Patient denies nausea, vomiting, shortness of breath. Patient denies alleviating or inciting factors. Patient states pain began approximately 45 minutes ago. Historical: - Allergies: 16:31 No Known Allergies; jl7 - Home Meds: 16:31 Metformin Oral [Active]; atorvastatin oral [Active]; losartan-hydrochlorothiazide oral jl7 [Active]; tamsulosin oral [Active]; - PMHx: 16:31 Diabetes - NIDDM; Hypertension; jl7 - Immunization history:: Adult Immunizations unknown. - Social history:: Smoking status: Patient denies any tobacco usage or history of. ROS: 16:34 Constitutional: Negative for fever, and chills. Neck: Negative for injury, pain, and ms3 swelling. 16:34 Respiratory: Negative for shortness of breath, cough, wheezing, and pleuritic chest pain, Abdomen/GI: Negative for abdominal pain, nausea, vomiting, diarrhea, and constipation, MS/Extremity: Negative for injury and deformity, Skin: Negative for injury, rash, and discoloration. 16:34 Cardiovascular: Positive for chest pain. 16:34 All other systems are negative. Exam: 16:34 Constitutional: This is a well developed, well nourished patient who is awake, alert, ms3 and in no acute distress. Head/Face: Normocephalic, atraumatic. Neck: Trachea midline, no cervical lymphadenopathy. Supple, full range of motion without nuchal rigidity, or vertebral point tenderness. No Meningismus. Chest/axilla: Normal chest wall appearance and motion. Nontender with no deformity. Cardiovascular: Regular rate and rhythm with a normal S1 and S2. No gallops, murmurs, or rubs. Normal PMI, no JVD. No pulse deficits. Respiratory: Lungs have equal breath sounds bilaterally, clear to auscultation and percussion. No rales, rhonchi or wheezes noted. No increased work of breathing, no retractions or nasal flaring. Abdomen/GI: Soft, non-tender, with normal bowel sounds. No distension or tympany. No guarding or rebound. No evidence of tenderness throughout. Skin: Warm, dry with normal turgor. Normal color with no rashes, no lesions, and no evidence of cellulitis. MS/ Extremity: Pulses equal, no cyanosis. Neurovascular intact. Full, normal range of motion. 16:34 ECG was reviewed by the Attending Physician. ms3 Vital Signs: 16:20 BP 146 / 83; Pulse 84; Resp 17; Temp 98.2; Pulse Ox 99% ; Weight 93.89 kg; Height 5 ft. jl7 4 in. ; Pain 3/10; 16:37 BP 131 / 72; Pulse 87; Resp 18; Pulse Ox 99% on R/A; db 17:00 BP 126 / 68; Pulse 86; Resp 16; Pulse Ox 98% on R/A; db 16:20 Body Mass Index 35.53 (93.89 kg, 162.56 cm) jl7 16:20 Pain Scale: Adult jl7 MDM: 16:29 Patient medically screened. ms3 16:34 Differential diagnosis: abnormal EKG, acute myocardial infarction, coronary artery ms3 disease. 18:03 HEART Score: History: Slightly Suspicious (0), ECG: Non specific repolarization ms3 disturbance / LBTB / PM (1), Age: > or = 65 years (2), Risk Factors: 1 or 2 risk factors (1), [Hypertension] [DM] Troponin: < or = 1 x Normal Limit (0), Total Score = 4. The patient was given aspirin in the Emergency Department. Data reviewed: vital signs, nurses notes, lab test result(s), EKG, radiologic studies. Consideration of Admission/Observation Escalation of care including admission/observation considered. I considered the following discharge prescriptions or medication management in the emergency department Medications were administered in the Emergency Department. See MAR. Independent interpretation of the following test(s) in the Emergency Department equipment monitor phototypesetting: rate is 82 beats/min, Rhythm is normal sinus rhythm, regular, with no ectopy, Interpretation: normal rate, normal rhythm. Historians other than the Patient: Spouse/Significant Other: . Counseling: I had a detailed discussion with the patient and/or guardian regarding: the historical points, exam findings, and any diagnostic results supporting the discharge/admit diagnosis, lab results, radiology results, the need for outpatient follow up, to return to the emergency department if symptoms worsen or persist or if there are any questions or concerns that arise at home. Transition of care: After a detail discussion of the patient's case, care is transferred to David Infante MD. 09/07 16:29 Order name: Basic Metabolic Panel; Complete Time: 18:01 ms3 09/07 16:29 Order name: CBC with Diff; Complete Time: 18:01 ms3 09/07 16:29 Order name: Magnesium; Complete Time: 18:01 ms3 09/07 16:29 Order name: Troponin HS; Complete Time: 18:01 ms3 09/07 19:51 Order name: Troponin High Sensitivity; Complete Time: 20:20 EDMS 09/07 16:29 Order name: XRAY Chest (1 view); Complete Time: 18:01 ms3 09/07 16:29 Order name: EKG; Complete Time: 16:30 ms3 09/07 16:29 Order name: Cardiac monitoring; Complete Time: 16:56 ms3 09/07 16:29 Order name: EKG - Nurse/Tech; Complete Time: 16:36 ms3 09/07 16:29 Order name: IV Saline Lock; Complete Time: 16:56 ms3 09/07 16:29 Order name: Labs collected and sent; Complete Time: 16:56 ms3 09/07 16:29 Order name: O2 Per Protocol; Complete Time: 16:56 ms3 09/07 16:29 Order name: O2 Sat Monitoring; Complete Time: 16:56 ms3 09/07 18:06 Order name: Repeat Cardiac Enzymes at: Repeat trop at 1930; Complete Time: 19:46 ms3 EC:34 Rate is 78 beats/min. Rhythm is regular. Left axis deviation noted. TX interval is ms3 normal. QRS interval is prolonged. QT interval is prolonged. Clinical impression: NSR with bifasicular block. No change from previous ECG on August 11, 2021. Interpreted by me. Reviewed by me. Administered Medications: 16:55 Drug: Aspirin PO Chewable Tablet 324 mg Route: PO; db 21:08 Follow up: Response: No adverse reaction ll3 Disposition Summary: 09/07/22 20:20 Discharge Ordered Location: Home kdr Condition: Stable kdr Diagnosis - Chest pain, unspecified kdr Followup: ms3 - With: - When: 1 - 2 days - Reason: Recheck today's complaints Discharge Instructions: - Discharge Summary Sheet kdr - Chest Wall Pain, [id number] kdr - Nonspecific Chest Pain, Adult, [id number] kdr Forms: - Medication Reconciliation Form kdr - Thank You Letter kdr Signatures: Dispatcher [employer] EDDavid Valencia MD MD kdr Leal, Jahala RN RN jl7 Omar Almanzar DO DO ms3 Marie Davenport RN RN db Maritza Johnson RN ll3
--- NOTE | 2022-09-07 20:21 | ER ---
Nurse's Notes [facility] Name: Mikie Hurst Age: 72 yrs Sex: Male : 1950 Arrival Date: 09/07/2022 Time: 16:14 Bed 13 Private MD: Diagnosis: Chest pain, unspecified Presentation: 09/07 16:20 Chief complaint: Patient states: Intermittent left sided chest pain since 0. jl7 16:20 Method Of Arrival: Ambulatory [facility] 16:20 Coronavirus screen: At this time, the client does not indicate any symptoms associated jl with coronavirus-19. Ebola Screen: No symptoms or risks identified at this time. Initial Sepsis Screen: Does the patient meet any 2 criteria? No. Patient's initial sepsis screen is negative. Does the patient have a suspected source of infection? No. Patient's initial sepsis screen is negative. Risk Assessment: Do you want to hurt yourself or someone else? Patient reports no desire to harm self or others. Onset of symptoms was September 07, 2022 at 15:30. 16:20 Acuity: SHAYAN 2 jl7 Triage Assessment: 16:31 General: Appears in no apparent distress. uncomfortable, Behavior is calm, cooperative, jl7 appropriate for age. Pain: Complains of pain in anterior aspect of left upper chest Pain currently is 3 out of 10 on a pain scale. at worst was 9 out of 10 on a pain scale. Cardiovascular: Patient's skin is warm and dry. Historical: - Allergies: 16:31 No Known Allergies; jl7 - Home Meds: 16:31 Metformin Oral [Active]; atorvastatin oral [Active]; losartan-hydrochlorothiazide oral jl7 [Active]; tamsulosin oral [Active]; - PMHx: 16:31 Diabetes - NIDDM; Hypertension; jl7 - Immunization history:: Adult Immunizations unknown. - Social history:: Smoking status: Patient denies any tobacco usage or history of. Screenin:47 [facility] ED Fall Risk Assessment (Adult) History of falling in the last 3 months, db including since admission No falls in past 3 months (0 pts) Confusion or Disorientation No (0 pts) Intoxicated or Sedated No (0 pts) Impaired Gait No (0 pts) Mobility Assist Device Used No (0 pt) Altered Elimination No (0 pt) Score/Fall Risk Level 0 - 2 = Low Risk Oriented to surroundings, Maintained a safe environment. Abuse screen: Denies threats or abuse. Denies injuries from another. Nutritional screening: No deficits noted. Tuberculosis screening: No symptoms or risk factors identified. Assessment: 16:46 Reassessment: Patient appears in no apparent distress at this time. Patient and/or db family updated on plan of care and expected duration. Pain level reassessed. Patient is alert, oriented x 3, equal unlabored respirations, skin warm/dry/pink. center left chest pain. General: Appears in no apparent distress. comfortable, Behavior is calm, cooperative. Pain: Complains of pain in chest Pain does not radiate. Pain began suddenly. Neuro: Level of Consciousness is awake, alert, obeys commands, Oriented to person, place, time, situation. Respiratory: Airway is patent Respiratory effort is even, unlabored, Respiratory pattern is regular, symmetrical. 17:32 Reassessment: Patient appears in no apparent distress at this time. Patient and/or db family updated on plan of care and expected duration. Pain level reassessed. Patient is alert, oriented x 3, equal unlabored respirations, skin warm/dry/pink. General: Appears in no apparent distress. comfortable, Behavior is calm, cooperative. Neuro: Level of Consciousness is awake, alert, obeys commands, Oriented to person, place, time, situation. Vital Signs: 16:20 BP 146 / 83; Pulse 84; Resp 17; Temp 98.2; Pulse Ox 99% ; Weight 93.89 kg; Height 5 ft. jl7 4 in. ; Pain 3/10; 16:37 BP 131 / 72; Pulse 87; Resp 18; Pulse Ox 99% on R/A; db 17:00 BP 126 / 68; Pulse 86; Resp 16; Pulse Ox 98% on R/A; db 16:20 Body Mass Index 35.53 (93.89 kg, 162.56 cm) jl7 16:20 Pain Scale: Adult jl7 ED Course: 16:20 Patient arrived in ED. db 16:20 Arm band placed on right wrist. EKG completed in triage. Results shown to MD. jl7 16:22 Omar Almanzar DO is Attending Physician. ms3 16:31 Triage completed. jl7 16:36 Marie Davenport, [place] is Primary Nurse. db 16:46 Inserted saline lock: 20 gauge in right antecubital area, using aseptic technique. db Blood collected. 17:35 Allergy band placed. Bed in low position. Call light in reach. Side rails up X 1. db Client placed on continuous cardiac and pulse oximetry monitoring. NIBP monitoring applied. 17:51 XRAY Chest (1 view) In Process Unspecified. EDMS 18:06 Attending Physician role handed off by Omar Almanzar DO ms3 18:06 David Infante MD is Attending Physician. ms3 20:20 Gunnar Sharp MD is Referral Physician. kdr 21:08 No provider procedures requiring assistance completed. IV discontinued, intact, ll3 bleeding controlled, No redness/swelling at site. Pressure dressing applied. Patient maintains SpO2 saturation greater than 95% on room air. Administered Medications: 16:55 Drug: Aspirin PO Chewable Tablet 324 mg Route: PO; db 21:08 Follow up: Response: No adverse reaction ll3 Medication: 21:08 VIS not applicable for this client. ll3 Outcome: 20:20 Discharge ordered by . kdr 21:08 Discharged to home ambulatory, with family. ll3 21:08 Condition: stable 21:08 Discharge instructions given to patient, family, Instructed on discharge instructions, follow up and referral plans. Demonstrated understanding of instructions, follow-up care. 21:09 Patient left the ED. ll3 Signatures: Dispatcher [employer] [facility] David Infante MD MD kdr Jackie Sheikh RN RN jl7 Omar Almanzar DO DO ms3 Maritza Johnson RN RN ll3 Marie Davenport RN RN db
[2022-09-07 22:29] VITALS: TEMP 98.2
[2022-09-07 22:32] VITALS: BP 126/68; O2SAT 98
--- NOTE | 2022-09-09 08:22 | EKG ---
Test Date: 2022-09-07 Test Time: 16:23:50 Coil Former: HILARIO MEASUREMENT RESULTS: Intervals: Rate: 78 MS: 162 QRSD: 194 QT: 444 QTc: 506 [place]: P: 46 MS: 162 QRS: -84 T: 40 INTERPRETIVE STATEMENTS: Normal sinus rhythm Right bundle branch block Left anterior fascicular block Bifascicular block Moderate voltage criteria for LVH, may be normal variant Possible Lateral infarct, age undetermined Abnormal ECG Compared to ECG 08/11/2021 13:23:23 Left anterior fascicular block now present Bifascicular block now present Left ventricular hypertrophy now present Left-axis deviation no longer present Myocardial infarct finding still present Electronically Signed On 09-09-22 08:18:16 CDT by Gunnar Sharp
== END 2022-09-07 21:09 | disposition home or self-care (01) ==
LOC: ER 16:14
DX: R07.89 Other chest pain (principal); E11.9 Type 2 diabetes mellitus without complications; I10 Essential (primary) hypertension
CPT/HCPCS: 36415; 71045; 80048; 83735; 84484; 85025; 93005; 99284